=== PATIENT | female | born 1980 | race Caucasian/White ===

== ENCOUNTER → 2019-10-11 | Outpatient (CLI) | payer OTHER ==
[~2019-10-11] MED LIST: ASCO500 PO; BEYAZ; CALMAGZIN PO; CHOL10002 PO; IBUP100S PO
== END ==
LOC: LAB SHORT 14:13 → PLD 14:13
DX: L57.0 Actinic keratosis (principal); L28.0 Lichen simplex chronicus
CPT/HCPCS: 88305